=== PATIENT | female | born 1985 | race Caucasian/White ===

== ENCOUNTER 2017-07-04 03:08 | Emergency (ER) | payer MEDICAID ==
[~2017-07-04] VITALS: Ht 182.8 cm; Wt 120.2 kg
--- NOTE | ~2017-07-04 | EKG ---
[place], [place] ELECTROCARDIOGRAM REPORT NAME: LAURA DO UNIT #: [id number] ROOM: DOCTOR: DENNIS VERDIN,LUIZA BIRTHDATE: [birth year] DOS: 07/04/2017 TIME: 3:34 a.m. IMPRESSION: Sinus rhythm. LUIZA COLLINS MD CM:EKGRPT:ELECTROCARDIOGRAM REPORT [id number] LUIZA COLLINS MD
[2017-07-04 03:43] LABS: BASO # 0.1 10*3/uL (0.0-0.1); BASO % 0.6 % (0.0-1.0); EOS # 0.3 10*3/uL (0.0-0.4); EOS % 3.3 % (1.0-4.0); HEMOGLOBIN 13.6 g/dl (12.0-16.0); LYMPH # 3.8 10*3/uL (1.3-4.4); LYMPH % 39.7 % (27.0-41.0); MEAN CELL VOLUME 92.1 fl (81.0-99.0); MEAN CORPUSCULAR HGB 30.6 pg (27.0-31.0); MEAN CORPUSCULAR HGB CONC 33.2 g/dl (33.0-37.0); MEAN PLATELET VOLUME 9.5 fl (9.6-12.3); MONO # 0.7 10*3/uL (0.1-1.0); MONO % 6.8 % (3.0-9.0); NEUT # 4.8 10*3/uL (2.3-7.9); NEUT % 49.3 % (47.0-73.0); PLATELET COUNT AUTOMATED 360 10*3/uL (130-400); RED BLOOD COUNT 4.45 10*6/uL (4.10-5.10); RED CELL DISTRI WIDTH 12.2 % (0-14.5); WHITE BLOOD COUNT 9.7 10*3/uL (4.8-10.8)
[2017-07-04 04:00] LABS: ALBUMIN 3.7 gm/dl (3.1-4.5); ALKALINE PHOSPHATASE 98 U/L (45-117); BUN 11 mg/dl (7-24); CHLORIDE 105 mmol/L (98-107); CREATININE 0.64 mg/dL (0.55-1.02); POTASSIUM 3.8 mmol/L (3.5-5.1); SGOT/AST 23 IU/L (3-35); SGPT/ALT 47 U/L (12-78); SODIUM 141 mmol/L (136-145); TOTAL PROTEIN 7.9 gm/dL (6.4-8.2); TROPONIN I < 0.015 ng/ml (<0.045)
[2017-07-04] MEDS ORDERED: ZITHROMAX250 MG PO (04:25)
[2017-07-04] MEDS ORDERED: PREDNISONE20 M1 PO (04:25)
== END 2017-07-04 04:46 | disposition home or self-care (01) ==
LOC: ED 03:08
PROVIDERS: Emergency Medicine Emergency Medical Services
DX: J20.9 Acute bronchitis, unspecified (principal); F17.200 Nicotine dependence, unspecified, uncomplicated